=== PATIENT | female | born 1995 | race Caucasian/White ===

== ENCOUNTER 2017-06-02 08:00 | Inpatient (IN) ==
[2017-06-02] MEDS ORDERED: Famotidine 20 MG/2 ML VIAL IVP PRN (08:23)
[2017-06-02] MEDS ORDERED: Naloxone 0.4 MG/ML INJ IVP PRN (08:23)
[2017-06-02] MEDS ORDERED: *HR* Nalbuphine 20 MG/ML AMPUL IVP PRN (08:23)
[2017-06-02] MEDS ORDERED: Metoclopramide 10 MG/2 ML VIAL IVP PRN (08:23)
[2017-06-02] MEDS ORDERED: Ondansetron 4 MG/2 ML VIAL IVP PRN (08:23)
[2017-06-02] MEDS ORDERED: Oxytocin 20 units/ LR 1000 mL 20 UNIT/1,000 ML BAG IVC SCH (08:30)
[2017-06-02] MEDS ORDERED: miSOPROStol 25 MCG TABLET PO PRN (08:30)
[2017-06-02] MEDS ORDERED: Ringers Solution, Lactated 1,000 ML IVC SCH (08:30)
[2017-06-02 08:55] LABS: Basophils % 0.3 %; Eosinophils # 0.1 K/mcL (0.0-0.6); Eosinophils % 0.6 %; Hematocrit 32.9 % (35.3-44.9); Hemoglobin 10.6 g/dL (11.5-15.4); Immature Granulocytes % 0.7 % (0-4); Lymphocytes # 1.7 K/mcL (0.6-4.6); Lymphocytes % 11.7 %; Mean Corpuscular HGB Conc 32.2 g/dL (31.6-35.5); Mean Corpuscular Hemoglobin 26.3 pg (28.0-33.3); Mean Corpuscular Volume 81.6 fL (83.0-100.0); Mean Platelet Volume 10.5 fL (9.4-12.4); Monocytes # 0.7 K/mcL (0.0-1.3); Monocytes % 5.2 %; Neutrophils # 11.6 K/mcL (1.6-8.9); Platelet Count 212 K/mcL (140-400); Red Blood Count 4.03 M/mcL (3.82-4.97); Red Cell Distribution Width 14.6 % (11.5-14.5); Segmented Neutrophils % 81.5 %
[2017-06-02] MEDS ORDERED: Penicillin G Potassium 5,000,000 UNIT in D5% in Water (Mini-Bag+) 100 ML IVPB ONE (09:00)
[2017-06-02 09:28] LABS: Amphetamine Screen,Urine Negative ng/mL (Cutoff=1000); Barbiturate Screen,Urine Negative ng/mL (Cutoff=200); Benzodiazepines Screen,Urine Negative ng/mL (Cutoff=200); Cannabinoid Screen,Urine Negative ng/mL (Cutoff = 50); Cocaine Screen,Urine Negative ng/mL (Cutoff= 300); Opiate Screen,Urine Negative ng/mL (Cutoff=300); Phencyclidine Screen,Urine Negative ng/mL (Cutoff=25)
--- NOTE | 2017-06-02 10:12 | OB/GYN History & Physical ---
Date of Encounter: 06/02/17 Time of Encounter: 10:09 Assessment and Plan (1) Post term , 41 weeks Current visit: Yes Status: Acute Admit to labor and delivery for IOL for post-term GBS positive at 36 weeks, will treat for GBS with PCN Cytotec PO Consider use of AROM &/or pitocin for augmentation May have nuabain and/or epidural for pain control as requested Anticipate vaginal delivery POC per consult with Dr Enriquez (2) Encounter for planned induction of labor Current visit: Yes Status: Acute (3) Group beta Strep positive Current visit: Yes Status: Acute History of Present Illness Chief complaint: Post-term IOL HPI: Ms. Collier is a 22 year old at 41 weeks and 0 days gestation that presents to labor and delivery for schedule induction of labor for post-term . She has had an uncomplicated . She states positive movement. She denies headaches, chest pain, epigastric pain, vaginal discharge , vaginal bleeding, and contractions/cramping. Labs: GBS positive Hepatitis B Nonreactive HIV nonreactive Treponema Pallidum Negative Rubella Positive Varicella Positive Blood type O+/Negative Antibody Past Med Surg Social Fam HX - Past Medical History Medical history: no medical history Psychiatric history: no psych history - Social History Smoking Status: Former smoker Smokeless Tobacco Status: No Alcohol use: none Drug use: none - Family History Mother Adopted: No Living Status: Still Living Hx Family Cardiac Disorders: No Hx Family Respiratory Disorders: No Hx Family Cancer: No Hx Family GI Disorders: No Hx Family Genitourinary Disorders: No Hx Family Endocrine Disorder: No Hx Family Musculoskeletal Disorders: No Hx Family Neuromuscular Disorders: No Hx Family Neurologic Disorders: No Hx Family HEENT Disorders: No Hx Family Autoimmune Disorders: No Hx Family Reproductive Disorders: No Hx Family Psychosocial Disorders: No Hx Family Medical Disorders: No Obstetrical History - Pregnancies : 1 Para: 0 Term: 0 : 0 Ab's: 0 Livin Medications and Allergies Formula Tablet 06/02/17 [History] 3 Allergy/AdvReac Type Severity Reaction Status Date / Time No Known Allergies Allergy Verified 06/02/17 08:45 Review of System OB All systems PM: reviewed and no additional remarkable complaints except as stated Exam - Constitutional Constitutional: well developed, well nourished, no acute distress, average body habitus - HEENT HEENT: Normocephaly, Mucus Membranes Moist - Neck Neck exam: full ROM - Lungs Respiratory exam: CTAB - Cardiovascular Cardiovascular exam: RRR, +S1, +S2 - Abdomen Abdomen: Present: bowel sounds normal, gravid, non tender - Extremities Extremities exam: calf tenderness, normal capillary refill, normal inspection Deep Tendon Reflex Grade: 1+ Diminished - Vagina Vagina: Present: normal moisture - Cervix Dilation: 3 (Vaginal exam per appointment on 05/31/17) Effacement: 80 Station: -1 - Uterus Uterus exam: Present: normal size, normal contour Results Result Diagrams: 06/02/17 08:35 Abnormal lab results WBC 14.2 K/mcL (4.3-11.1) H 06/02/17 08:35 Hgb 10.6 g/dL (11.5-15.4) L 06/02/17 08:35 Hct 32.9 % (35.3-44.9) L 06/02/17 08:35 MCV 81.6 fL (83.0-100.0) L 06/02/17 08:35 MCH 26.3 pg (28.0-33.3) L 06/02/17 08:35 RDW 14.6 % (11.5-14.5) H 06/02/17 08:35 Neutrophils # 11.6 K/mcL (1.6-8.9) H 06/02/17 08:35 All other labs normal. - VTE Reasons for not Prescribing Prophylaxis: Treatment not Indicated - Low risk for VTE
[2017-06-02] MEDS: Penicillin G Potassium 2,500,000 UNIT in 0.9 % Sodium Chloride 100 ML IVPB SCH ×3 (13:58→21:12)
--- NOTE | 2017-06-02 14:29 | OB Labor Progress Note ---
Date of Encounter: 06/02/17 Time of Encounter: 14:24 Labor Progress Note - Subjective Subjective: Patient resting comfortably in bed. SROM when up to restroom, clear fluid. - Vital Signs Vital Signs: VSS - Cervix Cervix: 2/80/-2 - Heart Tones Heart Tones: 135 moderate variability with 15 x 15 accels. no decels. category I - [place]: Contractions every 2-5 minutes - Interventions Interventions: IUPC placed without difficulty. Patient and fetus tolerated well. - Plan Plan: Continue routine labor management Pain is well controlled; may have epidural/nubain upon request IUPC to monitor contractions Pitocin ordered; titrate as needed for adequate contractions. GBS positive - PCN prophylaxis running Anticipate vaginal delivery POC per consult with Dr Enriquez.
--- NOTE | 2017-06-02 16:04 | OB Labor Progress Note ---
Date of Encounter: 06/02/17 Time of Encounter: 16:02 Labor Progress Note - Subjective Subjective: IUPC not registering well. New cord placed, still not registering. Patient states she can feel contractions every few minutes, but are tolerable. - Vital Signs Vital Signs: VSS - Cervix Cervix: 4/80/-2 - Heart Tones Heart Tones: 135 moderate variability, category I - [place]: COntractions mildly/moderate with palpation. - Interventions Interventions: IUPC removed, forebag ruptured, new IUPC placed. patient and fetus tolerated well. - Plan Plan: Continue routine labor management GBS positive - PCN prophylaxis Patient may have nubain/epidural upon request Pitocin titrated for adequate labor Anticipate vaginal delivery POC per consult with Dr Enriquez.
[2017-06-02] MEDS ORDERED: Bupivacaine-MPF 0.25% 10 ML VIAL EP ONE (19:38)
[2017-06-02] MEDS ORDERED: *HR* FentaNYL (PF) 100 MCG/2 ML VIAL EP ONE (19:38)
[2017-06-02] MEDS ORDERED: Epidural Premix (fent/bupiv) 110 ML EP SCH (19:45)
[2017-06-02] MEDS ORDERED: Bupivacaine-MPF 0.25% 10 ML VIAL ONE (19:54)
[2017-06-02] MEDS ORDERED: *HR* FentaNYL (PF) 100 MCG/2 ML VIAL ONE (19:54)
[2017-06-02] MEDS ORDERED: Epidural Premix (fent/bupiv) 110 ML EP ONE (19:56)
--- NOTE | 2017-06-02 20:51 | Anesthesia Evaluation PreOp ---
Date of Encounter: 06/02/17 Time of Encounter: 19:44 - Past History Planned Operation: labor epidural Cardiac History: Denies any Significant Hx Pulmonary History: Denies Any Significant HX, Former smoker (started smoking 2 years ago, smoked about 1ppd . Quit with this .), Asthma (allergy- induced, well controlled. Has inhaler, rarely uses.) PROGRAMMER History: Denies Any Significant HX Other Medical History: Denies Any Significant HX Anesthesia History: No Prior Anesthetic Complications, Past Anesthesia (had ORIF of wrist at age 11, T&A at age 16. No problems with GA. No FHAP.) Alcohol Use: none Drug use: none Medications and Allergies Formula Tablet 06/02/17 [History] 3 Allergy/AdvReac Type Severity Reaction Status Date / Time No Known Allergies Allergy Verified 06/02/17 08:45 - Meds/Allergy Pre-op Review Medications Reviewed: Yes Allergies Reviewed: Yes Beta Blockers on Current Med List: No Anesthesia Results - Labs 06/02/17 08:35 Anesthesia Exam 111/78, 74, 20. FHTs 130s. Height: 5'7" Weight: 96 kg NPO (# of Hours): >12 Pain Scale: 5 Pain Scale Used: Numeric (1 - 10) - HEENT Pupil (Motor): Pupils equal, EOMI Mallampati: II Teeth: Normal Oral Opening: Greater than 3 - PROGRAMMER LOC: Oriented PROGRAMMER Motor: Normal RUE, Normal LUE, Normal RLE, Normal LLE, Normal Face PROGRAMMER Sensory: Normal: RUE, LUE, RLE, LLE, Face - Cardiac Rhythm: Regular - Pulmonary Breath Sounds: bilateral Clear Respiratory Effort: Symmetrical Anesthesia Assess/Plan ASA Score: 2 Modified Eva Scale for Level of Consciousness: Cooperative, oriented, and tranquil Anesthetic Plan: Regional Monitoring Plan: Standard Monitors
--- NOTE | 2017-06-02 20:56 | Anesthesia Procedures ---
Date of Encounter: 06/02/17 Time of Encounter: 19:58 Procedures: Anesthesia - Epidural/Spinal Patient ID/Chart reviewed: Yes Patient examined: Yes OB Eval: Gestational age: 41 OB Eval: : 1 OB Eval: Hx Para: 0 OB Eval: Dilated at (cm): 4 OB Eval: Contractions: Non-stressed pattern Consent Obtained: Yes Supplemental Oxygen: None/Room Air Site Prep: Aseptic Technique, Sterile prep and drape, Povidone-Iodine 1% Patient position: upright Local Anesthetic: Lidocaine 1% Amount of Local Anesthetic used: 5 Touhy Needle Gauge: 18 Touhy Needle Depth (cm): 5 Catheter Depth at Skin (cm): 16 Test Dose (1.5% Lido + Epi): Volume given (mls): 3 Test Dose Result: Negative Loading Dose: 0.25% Marcaine (mls): 8 Loading Dose: Fentanyl (mcg): 100 Loading Dose Administered: Thru Touhy Needle Infusion Med: 0.125% Bupivacaine w/ 2 mcg/ml Fentanyl Infusion Rate (mls/hr): [address]: Tegaderm, Tape Interspace Used: L4-L5 Loss of Resistance (ANA LAURA): Yes Blood: No CSF: No Paresthesia: No Procedure: Attempted to place epidural at L3-4, easily found epidural space. Catheter would not thread. Removed needle and placed again at L4-5 with ease, catheter easily threaded. Vitals + FHT's: 3 Vital Signs Time 1957 2020 2024 2029 2034 BP 103/58 119/64 126/59 124/63 114/62 Pulse 78 77 72 78 77 FHTs 130 130 130 130 130
--- NOTE | 2017-06-02 22:08 | OB Labor Progress Note ---
Date of Encounter: 06/02/17 Time of Encounter: 21:20 Labor Progress Note - Subjective Subjective: Called to patient's room related to RN unable to palpate presenting part. - Vital Signs Vital Signs: VSS - Cervix Cervix: Unable to palpate and was able to palpate previously. Called Dr Enriquez to room. - Heart Tones Heart Tones: 135 moderate variability; category I - [place]: IUPC contractions every 2-5 minutes - Interventions Interventions: Glass catheter placed and >2000mL of urine removed from bladder. - Plan Plan: Vaginal exam -/-[address] Enriquez's exam Continue routine labor management Patient comfortable with epidural GBS positive - PCN prophylaxis Pitocin currently infusing - titrate for adequate labor Anticipate vaginal delivery POC per consult with Dr Enriquez.
[2017-06-03] MEDS: Penicillin G Potassium 2,500,000 UNIT in 0.9 % Sodium Chloride 100 ML IVPB SCH ×2 (01:04→05:20)
[2017-06-03] MEDS ORDERED: Epidural Premix (fent/bupiv) 110 ML EP ONE (02:46)
--- NOTE | 2017-06-03 10:12 | OB/GYN Procedure Note ---
Delivery - Delivery Date: 06/03/17 Provider: Marina Barahona Intrapartum events: prolonged labor- > = 20hr Delivery induction: misoprostol Delivery augmentation: pitocin Delivery monitor: external FHT, external uterine Anesthesia: epidural Estimated Blood Loss: 400 - (s) A Delivery Date: 06/03/17 Infant Delivery Time: 09:11 Presentation: vertex Position: AMANDA Route of delivery: Gender: Male Viability: Viable Pounds: 7 Ounces: 4 Weight Gram: 3.295 kg at 1 minute: 9 at 5 mins: 9 Shoulder Dystocia: not encountered Specimens collected: cord blood Placenta: uterine exploration, retained, complete extraction Cord: nuchal cord, nuchal reduced - Repair Episiotomy: none Laceration Description: Labial (Bilateral) - Complications Delivery complications: retained placenta, other (Cord avulsion) Delivery comments: This is a 22 year old G1 now P1 who was admitted for elective induction at 41 weeks. She progressed with cytotec and pitocin to the second stage of labor. She pushed for 1 hour. She delivered a viable male infant, AMANDA, over an intact perineum with bilateral labial tears. was placed on maternal abdomen and mouth and nares were bulb suctioned. A nuchal cord x 1 was identified. The nuchal cord was reduced prior to delivery of the shoulders and body. scores were 9 and 9. The placenta did not readily delivery and during extraction , the cord avulsed. Dr. Turner was present and stepped in to perform manual extraction. The placenta was identified to be fragmented with a 3-vessel cord. Inspection revealed bilateral labial tears which were repaired with 4.0 vicryl in the usual fashion under epidural anesthesia. Dr. Turner removed remaining placenta fragments with Banjo. Methergine and eventually cytotec were given to control bleeding. EBL was 400. Placenta was held. Mom and are skin-to- skin and stable in room. Agree with above, Yue noted. I was present for the delivery of the infant which went without any complications. It was noted after delivery the patient had bilateral labial lacerations which were bleeding. During the process of getting the placenta out the cord and I scrubbed in and performed a manual extraction of the placenta. Once we had the placenta out it was noted bleeding was minimal and we proceeded to repair the labial lacerations with a 4-0 Vicryl in a running locking stitch. After we had this repaired as noted patient was bleeding on bimanual examination she was noted to have what appeared to be retained placenta using the banjo curet and ring forceps I was able to remove the retained placental tissue cavity was palpated and noted to be free of any retaining products. Patient did receive 1 dose of Methergine 0.2 mg IM and she received 600 g of Cytotec rectally we did observe the patient minimal bleeding noted patient will be observed for 2 hours before being taken to floor. - Disposition Mom disposition: stable in LDR disposition: stable in LDR
[2017-06-03] MEDS ORDERED: Oxytocin 20 units/ LR 1000 mL 20 UNIT/1,000 ML BAG IVC SCH (10:20)
[2017-06-03] MEDS ORDERED: *HR* HYDROcodone/Acet 5/325 mg TABLET PO PRN (10:20)
[2017-06-03] MEDS ORDERED: Measles/Mumps/Rubella Vacc 0.5 ML VIAL SQ PRN (10:20)
[2017-06-03] MEDS ORDERED: Acetaminophen 325 MG TABLET PO PRN (10:20)
[2017-06-03] MEDS: ceFAZolin 1,000 MG in Water for inj. (sterile) 20 ML 10 ML IVP SCH ×2 (10:38→18:25)
[2017-06-03] MEDS ORDERED: CeFAZolin Premix DUPLEX 2,000 MG/50 ML BAG IVPB SCH (11:00)
[2017-06-03] MEDS ORDERED: ceFAZolin 1,000 MG in D5% in Water (Mini-Bag+) 100 ML IVPB SCH ×2 (11:00)
[2017-06-03] MEDS ORDERED: Methylergonovine 0.2 MG/ML AMPUL IM ONE (14:54)
[2017-06-03] MEDS ORDERED: miSOPROStol 100 MCG TABLET PO ONE (14:54)
[2017-06-03] MEDS: Ibuprofen 600 MG TABLET PO PRN (21:04)
[2017-06-04] MEDS: ceFAZolin 1,000 MG in Water for inj. (sterile) 20 ML 10 ML IVP SCH (03:10)
[2017-06-04 04:37] LABS: Basophils % 0.1 %; Eosinophils # 0.1 K/mcL (0.0-0.6); Eosinophils % 0.4 %; Hematocrit 25.4 % (35.3-44.9); Immature Granulocytes % 0.6 % (0-4); Lymphocytes % 14.5 %; Mean Corpuscular HGB Conc 33.1 g/dL (31.6-35.5); Mean Corpuscular Volume 81.7 fL (83.0-100.0); Mean Platelet Volume 10.9 fL (9.4-12.4); Monocytes # 0.8 K/mcL (0.0-1.3); Monocytes % 5.5 %; Platelet Count 160 K/mcL (140-400); Red Blood Count 3.11 M/mcL (3.82-4.97); Red Cell Distribution Width 14.6 % (11.5-14.5); Segmented Neutrophils % 78.9 %
[2017-06-04 04:40] LABS: Hemoglobin 8.4 g/dL (11.5-15.4)
[2017-06-04 08:26] VITALS: BP 110/68
[2017-06-04] MEDS ORDERED: Prenatal Vit/FA 1 EACH TABLET PO SCH (09:00)
--- NOTE | 2017-06-04 09:18 | Discharge Summary ---
Date of Encounter: 06/04/17 Time of Encounter: 09:15 - Discharge Diagnosis (1) Vaginal delivery Priority: Primary Status: Acute Comments: Routine care. Anticipate discharge today. Meeting day 1 pp milestones. (2) anemia Priority: Secondary Status: Acute Comments: Patient asymptomatic, VSS Discharge home with Iron prescription bid (3) Breast feeding status of mother Priority: Secondary Status: Acute Comments: support prn Patient states she already has a breast pump at home. (4) Obstetric labial laceration, delivered, current hospitalization Priority: Secondary Status: Acute Comments: Bilateral labial lacerations repaired at time of delivery. Ibuprofen and ice packs prn - Discharge Medications Prescriptions: Ibuprofen [Motrin] 600 mg PO Q6HR PRN #60 tablet PRN Reason: Cramping Docusate [Colace] 100 mg PO BID #60 capsule Ferrous Sulfate 325 mg PO BID #60 tablet Home Medications: Formula Tablet 06/02/17 [History] Acetaminophen [Tylenol] 650 mg PO Q6HR PRN tablet 06/04/17 [Rx] Docusate [Colace] 100 mg PO BID #60 capsule 06/04/17 [Rx] Ferrous Sulfate 325 mg PO BID #60 tablet 06/04/17 [Rx] Ibuprofen [Motrin] 600 mg PO Q6HR PRN #60 tablet 06/04/17 [Rx] Allergies/Adverse Reactions: 3 Allergy/AdvReac Type Severity Reaction Status Date / Time No Known Allergies Allergy Verified 06/02/17 08:45 Data Procedures and tests throughout hospitalization: Laboratory Tests 06/02/17 06/02/17 06/04/17 08:35 08:35 04:15 WBC 14.2 H 14.0 H RBC 4.03 3.11 L Hgb 10.6 L 8.4 L D Hct 32.9 L 25.4 L MCV 81.6 L 81.7 L MCH 26.3 L 27.0 L MCHC 32.2 33.1 RDW 14.6 H 14.6 H Plt Count 212 160 MPV 10.5 10.9 Immature Gran % 0.7 0.6 Seg Neutrophils % 81.5 78.9 Lymphocytes % 11.7 14.5 Monocytes % 5.2 5.5 Eosinophils % 0.6 0.4 Basophils % 0.3 0.1 Neutrophils # 11.6 H 11.0 H Lymphocytes # 1.7 2.0 Monocytes # 0.7 0.8 Eosinophils # 0.1 0.1 Basophils # 0.0 0.0 Urine Opiates Screen Negative Ur Barbiturates Screen Negative Ur Phencyclidine Scrn Negative Ur Amphetamines Screen Negative U Benzodiazepines Scrn Negative Urine Cocaine Screen Negative U Marijuana (THC) Screen Negative Labs on day of discharge: Labs from last 24 hours 06/04/17 04:15 WBC 14.0 H RBC 3.11 L Hgb 8.4 L D Hct 25.4 L MCV 81.7 L MCH 27.0 L MCHC 33.1 RDW 14.6 H Plt Count 160 MPV 10.9 Immature Gran % 0.6 Seg Neutrophils % 78.9 Lymphocytes % 14.5 Monocytes % 5.5 Eosinophils % 0.4 Basophils % 0.1 Neutrophils # 11.0 H Lymphocytes # 2.0 Monocytes # 0.8 Eosinophils # 0.1 Basophils # 0.0 Date of admission: 06/02/17 08:13 Primary care physician: Hilary Suarez, Consults: 06/03/17 10:20 Consult to Network Services Project Manager [CONS] Routine Comment: Vaginal delivery, consult needed Discharging clinician: Naomi Yanez Anticipated date of discharge: 06/04/17 - Patient Status Disposition: Home, Self-Care Condition: Good Functional capacity at discharge: independent ambulation Overall status at discharge: patient is progressing back to baseline - Discharge Instructions Follow Up With: Hilary Suarez MD [Primary Care Provider] - Marina Barahona [Advanced Practice Nurse] - - Diet and Activity Activity: increase activity as tolerated Diet: regular diet Hospital Course Reason for admission: induction of labor Delivery: Episiotomy: none Laceration: other (labial) Other procedures: none complications: none Discharge diagnosis: IUP at term delivered [place] baby: male Hospital course: Delivery - Delivery Date: 06/03/17 Provider: Marina Barahona Intrapartum events: prolonged labor- > = 20hr Delivery induction: misoprostol Delivery augmentation: pitocin Delivery monitor: external FHT, external uterine Anesthesia: epidural Estimated Blood Loss: 400 - (s) A Delivery Date: 06/03/17 Delivery Time: 09:11 Presentation: vertex Position: AMANDA Route of delivery: Gender: Male Viability: Viable Pounds: 7 Ounces: 4 Weight Gram: 3.295 kg at 1 minute: 9 at 5 mins: 9 Shoulder Dystocia: not encountered Specimens collected: cord blood Placenta: uterine exploration, retained, complete extraction Cord: nuchal cord, nuchal reduced - Repair Episiotomy: none Laceration Description: Labial (Bilateral) - Complications Delivery complications: retained placenta, other (Cord avulsion) - Disposition Mom disposition: home PPD#1 disposition: home with mother Time Attestation: Total time spent providing and/or coordinating discharge services: Time Spent: Less than 30 minutes Exam - Constitutional Vitals: Temp Pulse Resp BP Pulse Ox 98.2 F 70 16 110/68 100 06/04/17 08:25 06/04/17 08:25 06/04/17 08:59 06/04/17 08:25 06/04/17 08:25 General appearance IM: A&O X 3 - GI/Abdominal GI/Abdominal exam IM: soft - External exam: normal external exam Uterine Tone: Firm Uterus Position: 2 Fingers Below Umbilicus - Extremities Exam Extremities exam IM: Present: pedal edema - Neurological Exam Neurological exam: normal gait, oriented X3 - Psychiatric Additional comments: reports good mood - Other Additional findings: undecided about contraception
[2017-06-04] MEDS: Ibuprofen 600 MG TABLET PO PRN (09:28)
== END 2017-06-04 11:20 | disposition home or self-care (01) | DRG 774 ==
LOC: 1NENULAB 08:13 → 1NENUOBS 06-03 13:00
PROVIDERS: ADMIT Advanced Practice Midwife; ATTEND Advanced Practice Midwife

== ENCOUNTER 2019-08-04 18:21 | Observation (INO) | END 2019-08-04 19:52 | disposition home or self-care (01) | LOC: 1NENULAB | PROVIDERS: ADMIT Student in an Organized Health Care Education/Training Program; ATTEND Student in an Organized Health Care Education/Training Program ==

== ENCOUNTER 2019-08-05 03:12 | Inpatient (IN) ==
[~2019-08-05 03:12] MED LIST: Famotidine 20 MG/2 ML VIAL IVP PRN; Metoclopramide 10 MG/2 ML VIAL IVP PRN; Naloxone 0.4 MG/ML INJ IVP PRN; Penicillin G Potassium 5,000,000 UNIT in 0.9 % Sodium Chloride Mini Bag 100 ML IVPB ONE
[2019-08-05] MEDS ORDERED: Ringers Solution, Lactated 1,000 ML IVC SCH (03:15)
[2019-08-05 03:38] LABS: Basophils % 0.2 %; Eosinophils # 0.1 K/mcL (0.0-0.6); Eosinophils % 0.4 %; Hematocrit 34.7 % (35.3-44.9); Hemoglobin 11.5 g/dL (11.5-15.4); Immature Granulocytes % 0.5 % (0-4); Lymphocytes # 2.1 K/mcL (0.6-4.6); Lymphocytes % 11.1 %; Mean Corpuscular HGB Conc 33.1 g/dL (31.6-35.5); Mean Corpuscular Hemoglobin 27.8 pg (28.0-33.3); Mean Platelet Volume 10.6 fL (9.4-12.4); Monocytes # 1.1 K/mcL (0.0-1.3); Monocytes % 5.9 %; Neutrophils # 15.4 K/mcL (1.6-8.9); Platelet Count 237 K/mcL (140-400); Red Blood Count 4.13 M/mcL (3.82-4.97); Segmented Neutrophils % 81.9 %; White Blood Count 18.8 K/mcL (4.3-11.1)
[2019-08-05 03:47] LABS: Amphetamine Screen,Urine Negative ng/mL (Cutoff=1000); Barbiturate Screen,Urine Negative ng/mL (Cutoff=200); Benzodiazepines Screen,Urine Negative ng/mL (Cutoff=200); Cannabinoid Screen,Urine Negative ng/mL (Cutoff = 50); Cocaine Screen,Urine Negative ng/mL (Cutoff= 300); Opiate Screen,Urine Negative ng/mL (Cutoff=300); Phencyclidine Screen,Urine Negative ng/mL (Cutoff=25)
[2019-08-05] MEDS ORDERED: Penicillin G Potassium 2,500,000 UNIT in 0.9 % Sodium Chloride 100 ML IVPB SCH (04:00)
[2019-08-05] MEDS ORDERED: EPHEDrine 50 MG/ML VIAL IVP PRN (04:26)
[2019-08-05] MEDS ORDERED: Epidural Premix (fent/bupiv) 110 ML EP SCH (04:30)
[2019-08-05] MEDS ORDERED: Epidural Premix (fent/bupiv) 110 ML EP ONE (04:35)
[2019-08-05] MEDS ORDERED: Ropivacaine/PF 0.2% 20 ML VIAL ONE (04:37)
[2019-08-05] MEDS: Oxytocin 20 units/ LR 1000 mL 20 UNIT/1,000 ML BAG IVC ONE ×2 (10:39→12:34)
[2019-08-05] MEDS ORDERED: Ibuprofen 600 MG TABLET PO PRN (13:16)
[2019-08-05] MEDS ORDERED: Benzocaine/Menthol 56 GM AEROSOL SPRAY TP PRN (13:16)
[2019-08-05] MEDS ORDERED: Oxytocin 20 units/ LR 1000 mL 20 UNIT/1,000 ML BAG IVC SCH (13:16)
[2019-08-05] MEDS ORDERED: Lanolin 7 G OINT...G. TP PRN (13:16)
[2019-08-05] MEDS ORDERED: Acetaminophen 325 MG TABLET PO PRN (13:16)
[2019-08-06 08:24] VITALS: BP 105/72
[2019-08-06] MEDS ORDERED: Prenatal Vit/FA 1 EACH TABLET PO SCH (09:00)
== END 2019-08-06 13:40 | disposition home or self-care (01) ==
LOC: 1NENULAB → 1NENUOBS 13:17
PROVIDERS: ADMIT Advanced Practice Midwife; ATTEND Advanced Practice Midwife